=== PATIENT | female | born 1975 | race Caucasian/White ===

== ENCOUNTER 2021-12-06 17:02 | Emergency (ER) | payer BC ==
[~2021-12-06] VITALS: Ht 162.6 cm; Wt 117.1 kg
[~2021-12-06 17:02] MED LIST: ADVIL200 MG PO; AUVI-Q0.1 MG/0.1 SUB-Q; BENADRYL ALLERG25 MG PO; PREDNISONE20 MG PO; TYLENOL325 MG PO; VITAMIN C 500500 M1 PO
[2021-12-06] MEDS ORDERED: PEPCID20 MG PO (17:41)
[2021-12-06] MEDS ORDERED: PREDNISONE20 MG PO (17:43)
== END 2021-12-06 19:31 | disposition home or self-care (01) ==
LOC: ED 17:02
DX: T78.1XXA Other adverse food reactions, not elsewhere classified, initial encounter (principal); Z88.0 Allergy status to penicillin; Z91.018 Allergy to other foods; Z91.012 Allergy to eggs; Z91.010 Allergy to peanuts; Z79.899 Other long term (current) drug therapy
CPT/HCPCS: 99283; J0171; J7512

== ENCOUNTER 2022-07-10 14:09 | Emergency (ER) | payer BC ==
[~2022-07-10] VITALS: Ht 162.6 cm; Wt 117.9 kg
[~2022-07-10 14:09] MED LIST changes: +PEPCID20 MG PO
[2022-07-10] MEDS ORDERED: LIPITOR20 MG PO (14:51)
[2022-07-10] MEDS ORDERED: EPIPEN 2-P0.3 MG/0.3 IM (16:52)
[2022-07-10] MEDS ORDERED: PREDNISONE20 MG PO (16:52)
== END 2022-07-10 17:22 | disposition home or self-care (01) ==
LOC: ED 14:09
DX: T78.1XXA Other adverse food reactions, not elsewhere classified, initial encounter (principal); R13.10 Dysphagia, unspecified; I10 Essential (primary) hypertension; E78.00 Pure hypercholesterolemia, unspecified; Z88.0 Allergy status to penicillin; Z91.018 Allergy to other foods; Z91.012 Allergy to eggs; Z79.899 Other long term (current) drug therapy
CPT/HCPCS: 96374; 99283-25; J0171; J2930; J7040